=== PATIENT | female | born 1955 | race Caucasian/White ===

== ENCOUNTER → 2017-03-13 | Outpatient (CLI) | payer OTHER ==
[~2017-03-13] MED LIST: METF10002 PO; OMEG100016 PO; PRAV40TA3 PO
--- NOTE | 2017-03-13 09:02 | DI ---
Indication: ITS.REASON: R29.818 Other symptoms and signs involving the ner, vision problems, bright lights, and able to focus, headaches PROCEDURE: MRI BRAIN W/O CONTRAST: Encounter: Initial Comparisons: None. Technique: Multiplanar, multisequence, MR imaging of the head without contrast was acquired. FINDINGS: No restricted diffusion is seen to suggest recent ischemic infarction. The normal johnson-white matter differentiation is maintained. No intra-axial or extra-axial mass or hemorrhage seen. No mass effect or midline shift. The ventricles and cerebral sulci are normal in size, shape, and configuration without evidence of hydrocephalus. The basilar cisterns are patent. Normal flow void seen within the intracranial arterial and venous structures indicating patency. The paranasal sinuses and mastoid air cells are well-aerated. The orbits and globes appear normal. IMPRESSION: No acute abnormalities of the brain identified by noncontrast MRI. .
== END ==
LOC: IMA.MDS 06:55
PROVIDERS: ATTEND Family Medicine
DX: R29.818 Other symptoms and signs involving the nervous system (principal)